=== PATIENT | male | born 1955 | race Asian ===

== ENCOUNTER 2016-06-13 14:40 | Emergency (ER) | payer OTHER ==
[~2016-06-13] VITALS: Ht 167.6 cm; Wt 58.2 kg
[~2016-06-13 14:40] MED LIST: DIAZEPAM5 MG PO; LYRICA25 MG; PRILOSEC10 MG PO
[2016-06-13 17:49] VITALS: BP 117/67
== END 2016-06-13 17:50 | disposition home or self-care (01) ==
LOC: EME 14:40
DX: M79.601 Pain in right arm (principal); I70.92 Chronic total occlusion of artery of the extremities; Z86.718 Personal history of other venous thrombosis and embolism; F17.200 Nicotine dependence, unspecified, uncomplicated
CPT/HCPCS: 99281; 99285